=== PATIENT | male | born 1985 | race American Indian/Alaskan Native ===

== ENCOUNTER 2020-04-18 07:02 | Emergency (ER) | payer OTHER ==
[2020-04-18 07:16] VITALS: BP 118/81
[2020-04-18] MEDS ORDERED: IBUPROFEN 600 MG TAB PO ONE (07:41)
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
== END 2020-04-18 08:50 | disposition home or self-care (01) ==
LOC: ED 07:02
DX: S16.1XXA Strain of muscle, fascia and tendon at neck level, initial encounter (principal); R07.89 Other chest pain; Z79.1 Long term (current) use of non-steroidal anti-inflammatories (NSAID); Z79.899 Other long term (current) drug therapy; V49.49XA Driver injured in collision with other motor vehicles in traffic accident, initial encounter; W22.10XA Striking against or struck by unspecified automobile airbag, initial encounter; Y93.89 Activity, other specified; Y92.410 Unspecified street and highway as the place of occurrence of the external cause; Y99.8 Other external cause status
CPT/HCPCS: 71046